=== PATIENT | male | born 1980 | race Caucasian/White ===

== ENCOUNTER 2017-05-28 22:04 | Emergency (ER) | payer OTHER ==
[2017-05-28 22:24] LABS: ADD MAN DIFF? NO
[2017-05-28 22:27] LABS: BASO % 1 % (0-3); EOS # 0.1 x10^3/uL (0.0-0.7); EOS % 2 % (0-3); HEMATOCRIT 43.7 % (39.0-53.0); HEMOGLOBIN 15.1 g/dL (13.0-17.5); LYMPH # 2.4 x10^3/uL (1.0-4.8); LYMPH % 52 % (24-48); MEAN CORPUSCULAR HEMOGLOBIN 30 pg (25-35); MEAN CORPUSCULAR HGB CONC 35 g/dL (31-37); MEAN CORPUSCULAR VOLUME 87 fL (79-100); MONO # 0.3 x10^3/uL (0.0-1.1); MONO % 7 % (0-9); NEUT # 1.8 x10^3uL (1.8-7.7); NEUT % 38 % (31-73); PLATELET COUNT 262 x10^3/uL (140-400); RED CELL DISTRIBUTION WIDTH 14.2 % (11.5-14.5); WHITE BLOOD COUNT 4.7 x10^3/uL (4.0-11.0)
[2017-05-28] MEDS: fentaNYL PF VIAL 100 MCG/2 ML VIAL IV (22:28)
[2017-05-28] MEDS: IV NORMAL SALINE 1000ML BAG 1,000 ML IV (22:30)
[2017-05-28 22:34] LABS: ANION GAP 9 (6-14); BLOOD UREA NITROGEN 19 mg/dL (8-26); CALCIUM 8.8 mg/dL (8.5-10.1); CARBON DIOXIDE 30 mmol/L (21-32); CHLORIDE 100 mmol/L (98-107); CREATININE 1.6 mg/dL (0.7-1.3); GFR 49.4; GLUCOSE 64 mg/dL (70-99); POTASSIUM 3.1 mmol/L (3.5-5.1); SODIUM 139 mmol/L (136-145)
[2017-05-28 22:36] LABS: INR 1.1 (0.8-1.1); PARTIAL THROMBOPLASTIN TIME 26 SEC (24-38); PROTHROMBIN TIME PATIENT 13.8 SEC (11.7-14.0)
== END 2017-05-28 23:02 | disposition short-term general hospital (02) ==
LOC: ER 23:02
DX: S71.101A Unspecified open wound, right thigh, initial encounter (principal); W18.39XA Other fall on same level, initial encounter; Y93.89 Activity, other specified; Y92.89 Other specified places as the place of occurrence of the external cause; Y99.8 Other external cause status
CPT/HCPCS: 36415; 73552; 73562; 80048; 85025; 85610; 85730; 86850; 86900; 86901; 96361; 96374; 99285-25; J3010; J7030